=== PATIENT | male | born 1995 | race Two or more races ===

== ENCOUNTER 2019-12-13 02:34 | Emergency (ER) | payer OTHER ==
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
[2019-12-13] MEDS ORDERED: HYDROMORPHONE HCL INJ/PF 2 MG/ML AMPULE IV ONE ×2 (04:10→04:14)
[2019-12-13] MEDS ORDERED: ONDANSETRON HCL INJ/PF 4 MG/2 ML SDV IV ONE (04:10)
[2019-12-13] MEDS ORDERED: ONDANSETRON HCL INJ/PF 4 MG/2 ML SDV ONE (04:10)
[2019-12-13] MEDS ORDERED: PROPOFOL INJ 200 MG/20 ML VIAL IV ONE ×2 (04:15→06:14)
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
--- NOTE | 2019-12-13 05:00 | RADIOLOGY REPORT (SQ) ---
EXAM DESCRIPTION: CT HEAD WITHOUT IV CONTRAST COMPLETED DATE/TME: 12/13/2019 04:15 CLINICAL HISTORY: head injury, ETOH COMPARISON: None available TECHNIQUE: Axial CT of the head obtained from the skull apex to the skull base without contrast. FINDINGS: No acute intracranial hemorrhage identified. No mass, mass effect, shift of the midline, abnormal extra-axial fluid collection or CT evidence of acute ischemic change identified. The ventricular system is unremarkable. No acute abnormalities of the supratentorial white matter, basal ganglia, cerebellum, or brainstem. The visualized paranasal sinuses and the mastoids are clear. No skull fracture identified. Visualized orbits and globes are unremarkable. IMPRESSION: 1. No acute intracranial abnormality identified. This exam was performed according to our departmental dose-optimization program, which includes automated exposure control, adjustment of the mA and/or kV according to patient size and/or use of iterative reconstruction technique.
--- NOTE | 2019-12-13 05:29 | RADIOLOGY REPORT (SQ) ---
EXAM DESCRIPTION: CT CERVICAL SPINE WITHOUT IV CONTRAST COMPLETED DATE/TME: 12/13/2019 04:15 CLINICAL HISTORY: head injury, ETOH COMPARISON: None available TECHNIQUE: Axial CT of the cervical spine obtained without contrast. FINDINGS: Straightening of the cervical lordosis may be secondary to patient positioning. The atlantoaxial, atlantodental, and occipitoatlantal intervals are preserved. No fracture identified. Vertebral body height preserved. Prevertebral soft tissues are unremarkable. Intervertebral disc height preserved. Visualized skull base is intact. No fracture of the visualized facial bones. Visualized mastoid air cells and paranasal sinuses are well aerated. Visualized thyroid is unremarkable. No cervical lymphadenopathy. No pneumothorax in the visualized lung apices. IMPRESSION: 1. No acute fracture or subluxation of the cervical spine. This exam was performed according to our departmental dose-optimization program, which includes automated exposure control, adjustment of the mA and/or kV according to patient size and/or use of iterative reconstruction technique.
[2019-12-13] MEDS: PROPOFOL INJ 200 MG/20 ML VIAL IV ONE ×2 (05:30→06:20)
[2019-12-13] MEDS ORDERED: HYDROCODONE/ACETAMINOPHEN 5-325 MG (6 TAB/ER DISP) PO PRN (06:18)
--- NOTE | 2019-12-13 06:20 | RADIOLOGY REPORT (SQ) ---
EXAM: X-ray shoulder two or more views CLINICAL DATA: 24-year-old male status post reduction of right shoulder dislocation TECHNICAL DATA: Two x-ray views of the right shoulder were performed on 12/13/2019 at 5:37 AM. COMPARISONS: 12/13/2019 at 3:04 AM FINDINGS: Since the previous examination there has been satisfactory closed reduction of the right shoulder dislocation. No definite acute fracture is identified. The acromioclavicular joint is intact. No lytic or sclerotic bone lesions are seen. Bone mineralization is normal. No focal soft tissue abnormalities are identified. IMPRESSION: Satisfactory closed reduction of the right shoulder dislocation without definite fracture identified.
[2019-12-13 06:52] VITALS: BP 155/78
== END 2019-12-13 06:54 | disposition home or self-care (01) ==
LOC: ER 02:34
DX: S00.83XA Contusion of other part of head, initial encounter (principal); S43.004A Unspecified dislocation of right shoulder joint, initial encounter; Y04.2XXA Assault by strike against or bumped into by another person, initial encounter; Y92.89 Other specified places as the place of occurrence of the external cause; F17.200 Nicotine dependence, unspecified, uncomplicated
CPT/HCPCS: 73030; 70450; 72125; 23650; J1170; J2405; J2704

== ENCOUNTER 2019-12-29 17:58 | Emergency (ER) | payer OTHER ==
[2019-12-29] MEDS ORDERED: DOCUSATE SODIUM 100 MG CAPSULE RT_EAR ONE (18:25)
--- NOTE | 2019-12-29 18:27 | ER Document Report ---
HPI - HPI Time Seen by Provider: 12/29/19 18:22 Notes: Otherwise healthy 24-year-old male presenting to the emergency department with concern for possible impacted cerumen to his right ear. Patient reports he had some wax in there approximately 2 weeks ago, he states that he used a Q-tip alth ough he was not able to get it out. Patient reports again last night and today he felt acute there was a lot of wax, he tried removing it but he thinks it made the problem worse. Denies any fever. Past Medical History - General Information source: Patient - Social History Smoking Status: Never Smoker Frequency of alcohol use: None Drug Abuse: None Family History: Reviewed & Not Pertinent - Medical History Medical History: Negative Surgical Hx: Negative - Immunizations Immunizations up to date: Yes Hx Diphtheria, Pertussis, Tetanus Vaccination: Yes Vertical Provider Document - CONSTITUTIONAL Notes: PHYSICAL EXAMINATION: GENERAL: Well-appearing, well-nourished and in no acute distress. HEAD: Atraumatic, normocephalic. EYES: Pupils equal round extraocular movements intact, conjunctiva are normal. ENT: Nares patent, cerumen impaction noted to right ear canal, TM unable to visualize. Left TM and canal unremarkable. NECK: Normal range of motion LUNGS: No respiratory distress Musculoskeletal: Normal range of motion NEUROLOGICAL: Normal speech, normal gait. PSYCH: Normal mood, normal affect. SKIN: Warm, Dry, normal turgor, no rashes or lesions noted. - INFECTION CONTROL TRAVEL OUTSIDE OF THE [place] IN LAST 30 DAYS: No Course - Re-evaluation Re-evalutation: 12/29/19 20:57 Ear irrigation was performed, most of the cerumen was removed, patient does have an otitis externa, TM brayan, no otitis media noted. Discharge - Discharge Clinical Impression: Cerumen impaction Qualifiers: Laterality: right Qualified Code(s): H61.21 - Impacted cerumen, right ear Otitis externa Qualifiers: Otitis externa type: unspecified type Laterality: right Condition: Stable Disposition: HOME, SELF-CARE Instructions: Use of Ear Drops ([facility]), Otitis Externa ([facility]) Additional Instructions: Please apply 4 drops of the Ciprodex eardrops to the right ear twice daily. Take Tylenol or ibuprofen for any pain or fever.
[2019-12-29] MEDS ORDERED: CIPROFLOXACIN HCL/DEXAMETH OTIC DROP 7.5 ML AD ONE (20:56)
[2019-12-29 21:06] VITALS: BP 149/86
== END 2019-12-29 21:15 | disposition home or self-care (01) ==
LOC: ER 17:58
DX: H61.21 Impacted cerumen, right ear (principal); H60.91 Unspecified otitis externa, right ear; H92.01 Otalgia, right ear
CPT/HCPCS: 99282; J3490

== ENCOUNTER → 2020-06-02 | Outpatient (CLI) | payer OTHER ==
[2020-06-02 13:11] VITALS: BP 139/60
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
== END ==
LOC: RDC 12:42
PROVIDERS: ATTEND Registered Nurse
DX: Z20.828 Contact with and (suspected) exposure to other viral communicable diseases (principal); F17.200 Nicotine dependence, unspecified, uncomplicated
CPT/HCPCS: 87635; C9803; 99201; 99211